=== PATIENT | female | born 1990 | race Caucasian/White ===

== ENCOUNTER 2016-12-23 13:12 | Emergency (ER) | payer OTHER ==
[~2016-12-23] VITALS: Ht 160 cm; Wt 84.7 kg
[2016-12-23 13:23] VITALS: TEMP 36.8; Ht 160 cm; Wt 84.7 kg
--- NOTE | 2016-12-23 14:21 | DIAGNOSTIC IMAGING REPORT ---
LUMBAR SPINE 5 VIEWS HISTORY: low back pain, fall COMPARISON: None. FINDINGS: There is no fracture. No subluxation. Disc spaces are preserved. Prior cholecystectomy. An intrauterine device is partially visualized within the lower mid pelvis. IMPRESSION: No fracture or subluxation within the lumbar spine. Electronically signed by: Jeancarlos López M.D. 12/23/2016 2:20 PM Dictated Date/Time: 12/23/2016 2:18 PM
[2016-12-23] MEDS ORDERED: NAPROXEN 250 MG TAB PO STA (14:36)
[2016-12-23 15:21] VITALS: BP 98/65; PULSE 62; O2SAT 99
[2016-12-23] MEDS ORDERED: NAPR250T3 PO (15:26)
--- NOTE | 2016-12-23 15:26 | EMERGENCY ROOM VISIT NOTE ---
ED Visit Note First contact with patient: 13:29 CHIEF COMPLAINT: Low back pain HISTORY OF PRESENT ILLNESS: This 26-year-old female patient presents to the emergency department ambulatory complaining of pain in the low back which began this morning. The patient states that she has chronic back pain, but this morning she fell onto her back, causing her pain to increase. The pain is gradually worsening and is worse with movement. The patient notes the pain as sharp and a 9.5/10. The patient has taken no medication for relief of the pain. The patient denies any loss of control of their bowel or bladder functions. There has been no leg numbness or weakness, and no change in sensation. No nausea or vomiting or abdominal pain. No chest pain or shortness of breath. The patient has not had prior back injuries. No dysuria or increased urinary frequency. REVIEW OF SYSTEMS: A review of systems was performed with positives and pertinent negatives listed in the history of present illness. All other systems were reviewed and are negative. ALLERGIES: No known drug allergies MEDICATIONS: No chronic medications PMH: No significant past medical history. SOCIAL HISTORY: The patient lives locally with family. PHYSICAL EXAM: VITALS: Vitals are noted on the nurse's note and reviewed by myself. Vital signs stable. GENERAL: This is a 26-year-old female, in no acute distress, nondiaphoretic, well-developed well-nourished. SKIN: The skin was without rashes, erythema, edema, or bruising. Capillary refill less than 2 seconds. NECK: Supple without nuchal rigidity. No cervical spine tenderness. No paraspinous muscle tenderness. HEART: Regular rate and rhythm without murmurs gallops or rubs. LUNGS: Clear to auscultation bilaterally without wheezes, rales or rhonchi. ABDOMEN: Positive bowel sounds x 4. Normal tympanic percussion. Soft, nontender, without masses or organomegaly. Maher sign negative. MUSCULOSKELETAL: No muscle atrophy, erythema, or edema noted of the back. There is mild tenderness over the lumbar spinous processes. There is no tenderness over the paraspinous muscles. There is no tenderness over the thoracic spine or paraspinous muscles. There are no muscle spasms present. NEURO: Patient was alert and oriented to person place and time. Normal sensation to light and sharp touch. Deep tendon reflexes 2+ in the lower extremities. Dorsalis pedis pulse 2+ bilaterally. Strength 5/5 and equal in the bilateral lower extremities. RADIOGRAPHIC FINDINGS: LUMBAR SPINE 5 VIEWS HISTORY: low back pain, fall COMPARISON: None. FINDINGS: There is no fracture. No subluxation. Disc spaces are preserved. Prior cholecystectomy. An intrauterine device is partially visualized within the lower mid pelvis. IMPRESSION: No fracture or subluxation within the lumbar spine. EMERGENCY DEPARTMENT COURSE: The patient was evaluated as above. X-ray of the lumbar spine was obtained and read by radiology with no acute findings. The patient was given 1 tablet of Naprosyn here. She will be given a prescription of Naprosyn to take at home. She was concerned that this medication may make her drowsy and suggested hydrocodone instead. I informed her that hydrocodone would make her much more drowsy than Naprosyn and she verbalized her understanding. She was discharged home in good condition. DIAGNOSIS: Lumbar contusion Current/Historical Medications Scheduled Naproxen Tab (Naprosyn), 250 MG PO BID Allergies Coded Allergies: No Known Allergies (Unverified , 12/23/16) Vital Signs Date Time Temp Pulse Resp B/P Pulse Ox O2 Delivery O2 Flow Rate FiO2 12/23/16 15:21 62 16 98/65 99 Room Air 12/23/16 13:23 36.8 80 18 125/85 99 Room Air Medications Administered Medications (Trade) Dose Ordered Sig/Steven Route Start Time Stop Time Status Last Admin Dose Admin Naproxen (Naprosyn Tab) 250 mg NOW STAT PO 12/23/16 14:36 12/23/16 14:38 DC 12/23/16 14:47 250 MG Departure Information Impression Primary Impression: Lumbar contusion Dispostion Home / Self-Care Condition GOOD Prescriptions Naproxen Tab (NAPROSYN) 250 Mg Tab 250 MG PO BID for 5 Days, #10 TAB Prov: Suzanne Lr ., CINDA 12/23/16 Referrals No Doctor, Assigned (PCP) Patient Instructions My [facility] Additional Instructions You have been treated in the Emergency Department for Back Pain. Naprosyn as prescribed. For pain control, you can use the following [id number] medicines (if >12 yo): - Regular strength (325mg/tab) Tylenol (acetaminophen) 2 tabs every 4-6 hours as needed. Do not exceed 12 tablets in a 24 hour period. Avoid taking more than 4 grams (4000 mg) of Tylenol per day. This includes any other sources of acetaminophen you may take on a regular basis. If this is an acute injury, ice can be applied to the area of pain for the first 3 days to help decrease pain and inflammation. After the first 3 days, a heating pad can be used over the area for continued soothing relief. You should schedule a follow-up appointment in 2-3 days with your Primary Care Provider for further evaluation and treatment of your back pain. Return to the Emergency Department if your current symptoms worsen despite treatment course outlined above, or if you develop any of the following symptoms : intractable pain despite aforementioned treatment course, loss of control of your bowel or bladder, numbness or tingling in your groin, or development of a fever. Problem Qualifiers Primary Impression: Lumbar contusion Encounter type: initial encounter Qualified Codes: S30.0XXA - Contusion of lower back and pelvis, initial encounter
== END 2016-12-23 15:36 | disposition home or self-care (01) ==
LOC: C.EDB 13:13 → C.EDD 15:36
DX: S30.0XXA Contusion of lower back and pelvis, initial encounter (principal); W19.XXXA Unspecified fall, initial encounter; G89.29 Other chronic pain